=== PATIENT | male | born 1960 ===

== ENCOUNTER 2019-10-20 08:12 | Outpatient (CLI) | payer OTHER | END 2019-10-20 23:59 | disposition home or self-care (01) | LOC: CFH 08:12 | PROVIDERS: ATTEND Internal Medicine Cardiovascular Disease | DX: I47.2 Ventricular tachycardia (principal); R00.1 Bradycardia, unspecified; R00.2 Palpitations; Z68.24 Body mass index [BMI] 24.0-24.9, adult; Z82.3 Family history of stroke; Z82.49 Family history of ischemic heart disease and other diseases of the circulatory system | CPT/HCPCS: 71046 ==

== ENCOUNTER 2019-10-21 07:21 | Day surgery (SDC) | payer OTHER ==
[~2019-10-21] VITALS: Ht 182.9 cm; Wt 79.5 kg
[2019-10-21] MEDS ORDERED: SODIUM CHLORIDE 0.9% 1,000 ML IV SCH (07:49)
[2019-10-21 07:53] VITALS: BP 142/86
[2019-10-21] MEDS ORDERED: ADENOSINE 6 MG/2 ML ONE (09:50)
[2019-10-21] MEDS ORDERED: MIDAZOLAM 1 MG/ML, 5ML ONE (09:50)
[2019-10-21] MEDS ORDERED: FENTANYL PF 100 MCG/2ML ONE (09:50)
[2019-10-21] MEDS ORDERED: LIDOCAINE 2%, 20ML ONE (09:51)
[2019-10-21] MEDS ORDERED: ISOPROTERENOL 0.2MG/ML, 5ML ONE (09:51)
[2019-10-21] MEDS ORDERED: ATROPINE SYRINGE 0.1 MG/ML, 10ML ONE (10:51)
[2019-10-21 13:18] VITALS: BP 128/86
== END 2019-10-21 20:20 | disposition home or self-care (01) ==
LOC: CACL 07:21 → 5SO 12:20 → CACL 20:20
PROVIDERS: ATTEND Internal Medicine Cardiovascular Disease
DX: I47.1 Supraventricular tachycardia (principal)
CPT/HCPCS: 93613; 93621; 93623; 93653; 99156; 99157; C1730; C1769; C1894; C2630; J0461; J2250; J3010; G0378; J0153